=== PATIENT | female | born 1950 | race American Indian/Alaskan Native ===

== ENCOUNTER 2017-09-06 11:30 | Outpatient (CLI) | payer MEDICARE ==
--- NOTE | 2017-09-07 11:21 | Mammography Report ---
BONE DEXA:09/06/17 11:30:00 CLINICAL: Postmenopausal. COMPARISON: None. TECHNIQUE: Two site bone DEXA performed on an Hologic scanner. FINDINGS: The average BMD of the lumbar spine L1-L4 is 1.064g/cm squared with a T-score of +0.2 and a Z-score of +1.3. The average BMD of the left hip is 0.940g/cm squared with a T-score of 0 and a Z-score of +0.4. IMPRESSION: WHO classification: Normal with average fracture risk based on the spine and left hip measurements. RECOMMENDATION: Clinical correlation and routine screening. DEFINITIONS: BMD = Bone Mineral Density T-score = BMD related to mean peak bone mass of young adult (mean expressed in Standard Deviation) Z-score = Age matched BMD expressed in SD World Health Organization (WHO) Diagnostic Criteria Normal T-score > -1 SD Osteopenia T-score between -1 and -2.4 SD Osteoporosis T-score -2.5 SD or below NOTE: BMD is not the only risk factor for fracture; also consider factors such as the patient's age, risk of falling, previous osteoporotic fracture, family history of osteoporotic fractures, current smoker, and low body weight. Z-scores are not calculated if >80 years of age.
== END 2017-09-06 11:31 | disposition home or self-care (01) ==
LOC: MAMMO 11:30
PROVIDERS: ATTEND Internal Medicine
DX: M81.0 Age-related osteoporosis without current pathological fracture (principal); M19.90 Unspecified osteoarthritis, unspecified site; Z78.0 Asymptomatic menopausal state
CPT/HCPCS: 77080

== ENCOUNTER 2017-12-05 10:37 | Outpatient (CLI) | payer MEDICARE ==
--- NOTE | 2017-12-05 11:46 | XRay Report ---
RIGHT HIP, 2 views: History: Right hip pain. The bony architecture is intact without evidence of fracture or dislocation. No significant soft tissue abnormality is seen. IMPRESSION: Normal right hip.
--- NOTE | 2017-12-05 11:47 | XRay Report ---
BILATERAL KNEES STANDING, AP VIEW History: Pain in bilateral knees. Findings: Moderate to severe osteoarthritic joint space narrowing is identified in the medial compartment of the left knee. There is sparing of the lateral compartment. The right knee joint space is within normal limits. No evidence for fracture or bone lesion. The soft tissues are unremarkable. Impression: Advanced medial compartment osteoarthritis in the left knee.
--- NOTE | 2017-12-05 11:49 | XRay Report ---
LUMBOSACRAL SPINE, 3 VIEWS: History: Low back pain Findings: There is normal bone mineralization. There is suggestion of minimal dextrocurvature to the lumbar spine on the AP image estimated at less than 5 degrees. There is no evidence for compression deformity, subluxation or bone lesion. Mild degenerative disc disease and facet arthropathy are identified at all levels. The sacrum and SI joints are unremarkable. Impression: Minimal scoliosis. Mild multilevel lumbar spondylosis. No acute process.
== END 2017-12-05 10:38 | disposition home or self-care (01) ==
LOC: XRAY 10:37
PROVIDERS: ATTEND Orthopaedic Surgery
DX: M47.896 Other spondylosis, lumbar region (principal); M41.87 Other forms of scoliosis, lumbosacral region; M25.551 Pain in right hip; M25.561 Pain in right knee; M25.562 Pain in left knee; I10 Essential (primary) hypertension; G47.30 Sleep apnea, unspecified; M19.90 Unspecified osteoarthritis, unspecified site; Z90.710 Acquired absence of both cervix and uterus
CPT/HCPCS: 72100; 73565

== ENCOUNTER 2019-07-15 06:38 | Observation (INO) | payer MEDICARE ==
[2019-07-15] MEDS ORDERED: ASPIRIN EC 325 MG TAB PO ONE ×2 (06:55→07:10)
[2019-07-15] MEDS ORDERED: SODIUM CHLORIDE 0.9% 500 ML 500 ML IV SCH (07:00)
[2019-07-15] MEDS ORDERED: SODIUM CHLORIDE 0.9% 500 ML 500 ML ONE (07:10)
[2019-07-15 07:43] LABS: Basophils % (Auto) 0.5 % (0.0-1.8); Eosinophils # (Auto) 0.1 K/mm3 (0.0-0.4); Eosinophils % (Auto) 1.6 % (0.0-4.3); Hematocrit 30.4 % (30.3-42.9); Hemoglobin 9.4 gm/dl (10.1-14.3); Lymphocytes # (Auto) 1.7 K/mm3 (1.2-5.4); Lymphocytes % (Auto) 24.9 % (13.4-35.0); Mean Corpuscular HGB Conc 31 % (30-34); Mean Corpuscular Volume 80 fl (79-97); Monocytes # (Auto) 0.6 K/mm3 (0.0-0.8); Monocytes % (Auto) 8.6 % (0.0-7.3); Platelet Count 180 K/mm3 (140-440); Red Blood Count 3.81 M/mm3 (3.65-5.03); Red Cell Distribution Width 13.4 % (13.2-15.2)
[2019-07-15 07:46] LABS: Calcium 9.2 mg/dL (8.4-10.2); INR 0.97 (0.87-1.13)
--- NOTE | 2019-07-15 10:04 | Event Note ---
Date: 07/15/19 69-year-old woman with chronic kidney disease, referred for outpatient cardiac catheterization. Preprocedure testing shows a creatinine of 1.8. Due to concerns about contrast nephropathy, the procedure will be postponed until tomorrow morning, to allow for overnight intravenous hydration with normal saline at 75 mL/h. The patient will be admitted to the medical floor for overnight observation.
[2019-07-15] MEDS ORDERED: ACETAMINOPHEN 325 MG TAB PO PRN (10:06)
[2019-07-15] MEDS ORDERED: ONDANSETRON 4 MG/2 ML INJ IV PRN (10:06)
[2019-07-15] MEDS ORDERED: DEXTROSE 50% IN WATER (25GM) 50 ML SYRINGE IV PRN (10:10)
[2019-07-15] MEDS: SODIUM CHLORIDE 0.9% 1000 ML 1,000 ML IV SCH (10:36)
[2019-07-15] MEDS ORDERED: NON-FORMULARY EACH (Losartan [Cozaar] 100 MG) PO SCH (11:00)
[2019-07-15] MEDS ORDERED: carvediloL 25 MG TAB PO SCH (11:00)
[2019-07-15] MEDS: carvediloL 12.5 MG TAB PO SCH ×2 (16:44→21:04)
[2019-07-15] MEDS: INSULIN REGULAR, HUMAN 100 UNITS/1 ML SUB-Q SCH ×2 (16:44→22:43)
[2019-07-15] MEDS: LOSARTAN 50 MG TAB PO SCH (17:14)
[2019-07-15] MEDS: amLODIPine 10 MG TAB PO SCH (17:14)
[2019-07-15] MEDS: FERROUS SULFATE 325 MG TAB PO SCH (21:04)
[2019-07-15] MEDS: CHOLECALCIFEROL (VIT D3) 1000 UNIT TAB PO SCH (21:05)
[2019-07-15] MEDS ORDERED: SIMVASTATIN 80 MG PO SCH (22:00)
[2019-07-15] MEDS ORDERED: PRAVASTATIN 80 MG TAB PO SCH (22:00)
[2019-07-16] MEDS: INSULIN REGULAR, HUMAN 100 UNITS/1 ML SUB-Q SCH ×3 (06:40→12:41)
[2019-07-16 06:46] LABS: Calcium 8.8 mg/dL (8.4-10.2)
[2019-07-16] MEDS ORDERED: glipiZIDE 10 MG TAB PO SCH (08:00)
[2019-07-16] MEDS ORDERED: ASPIRIN 325 MG TAB ONE (09:14)
[2019-07-16] MEDS ORDERED: HEPARIN/NS 5000 UNIT/500ML 1,000 ML IR ONE (09:30)
[2019-07-16] MEDS ORDERED: ASPIRIN 325 MG TAB PO SCH (10:00)
[2019-07-16] MEDS ORDERED: ENOXAPARIN 40 MG/0.4 ML INJ SUB-Q SCH (10:00)
[2019-07-16] MEDS ORDERED: ENOXAPARIN 30 MG/0.3 ML INJ SUB-Q SCH (10:00)
[2019-07-16] MEDS: MIDAZOLAM 2 MG/2 ML INJ ONE ×2 (10:02→10:15)
[2019-07-16] MEDS: fentaNYL 100 MCG/2 ML INJ ONE ×2 (10:02→10:15)
[2019-07-16] MEDS: SODIUM CHLORIDE 0.9% 1000 ML 1,000 ML IV SCH (10:03)
[2019-07-16] MEDS: HEPARIN 10,000 UNITS/10 ML VIAL ONE ×2 (10:03→10:19)
[2019-07-16] MEDS: VERAPAMIL 5 MG/2 ML INJ ONE ×2 (10:03→10:19)
[2019-07-16] MEDS: LIDOCAINE (2%) 20 MG/1 ML VIAL 20 ML MDV INFILTRATI ONE ×2 (10:03→10:17)
[2019-07-16] MEDS: NITROGLYCERIN SYRINGE 3 ML ONE ×2 (10:04→10:19)
[2019-07-16] MEDS ORDERED: SODIUM CHLORIDE 0.9% 1000 ML 1,000 ML IV SCH (10:40)
[2019-07-16 10:47] VITALS: BP 162/64
--- NOTE | 2019-07-16 10:49 | Cardiac Catherization Report ---
CARDIAC CATHETERIZATION REPORT REASON FOR PROCEDURE: Chest pain. INDICATIONS: The patient is a 69-year-old woman who has chest pain and chronic kidney disease, presented for an outpatient cardiac catheterization. The creatinine on presentation was 1.8. Due to concerns about contrast nephropathy, the patient was admitted with a diagnosis of renal failure, and underwent intravenous hydration overnight. Today, the creatinine is low at 1.5. Risks and benefits of the procedure discussed with the patient and she consents to proceed. She understands the present risk of contrast nephropathy. PROCEDURES: 1. Left heart catheterization. 2. Selective left and right coronary angiography. 3. Left ventricular angiography. 4. Sedation time, start 10:14, end 10:26. The patient was prepped and draped in a sterile fashion after informed consent. Right radial cath site was prepped after a negative Tono's test. The right radial artery was entered using the Seldinger technique followed by placement of a 6-Persian hydrophilic sheath. Routine radial cocktail was administered via the sheath. Selective left and right coronary angiography was performed using #3.5 left Scottie and a #4 right Scottie. The right Scottie was used for left ventricular angiography. The catheters were removed, sheath removed, and hemostasis achieved using a TR band. The patient was returned to post-procedure unit in stable condition. There were no complications. FINDINGS: HEMODYNAMICS: Left ventricular end-diastolic pressure was 20, following coronary angiography. Ascending aortic pressure was 160/58. There was no significant pressure gradient on pullback across the aortic valve. CORONARY ANGIOGRAPHY: Left main coronary artery was free of significant disease. The left anterior descending artery contained mild luminal irregularities in its proximal and mid segments. A large ramus intermedius artery contained mild luminal irregularities in the distal segments. The circumflex artery was also a large system. We noted a 40-50% stenosis of the AV groove vessel and its mid segment, just before the origin of the mid obtuse marginal. The circumflex system otherwise contained mild luminal irregularities. The right coronary artery was a relatively small caliber, but dominant vessel that was also free of significant disease. There was overall mild left ventricular systolic dysfunction with estimated ejection fraction of 45-50%. There was poor opacification of the left ventricle. CONCLUSION: 1. Mild nonobstructive irregularities as above, mild nonobstructive disease of the mid circumflex. 2. Mild left ventricular systolic dysfunction, ejection fraction 45-50%. 3. Total contrast used for the procedure was 40 mL of Visipaque. RECOMMENDATIONS: Risk factor modification and medical therapy. Echocardiographic reassessment of left ventricular systolic function is recommended. JOB# [id number] CA/NTS
--- NOTE | 2019-07-16 10:52 | Short Stay Summary ---
Short Stay Documentation Date of service: 07/16/19 Narrative H&P: Admitted for overnight hydration for renal failure, in preparation for contrast angiography. - History Past Medical History: hypertension - Allergies and Medications Current Medications: Allergies No Known Allergies Allergy (Unverified 01/03/17 16:09) Home Medications Medication Instructions Recorded Confirmed Last Taken Type carvediloL [Coreg] 12.5 mg PO BID 01/04/17 07/15/19 07/14/19 History glipiZIDE [Glucotrol] 10 mg PO QDAY 01/04/17 07/15/19 07/14/19 History Aspirin 325 mg PO QDAY #30 tablet 01/05/17 07/15/19 Unknown Rx amLODIPine 10 mg PO DAILY #30 tablet 01/05/17 07/15/19 07/14/19 Rx Brimonidine Tartrate [Alphagan P 1 drop OU Q8HR 07/15/19 07/15/19 07/14/19 History 0.1%] Cholecalciferol Vit D3 [Vitamin D3 1,000 units PO BID 07/15/19 07/15/19 07/14/19 History 1,000 UNIT TAB] Ferrous Sulfate [Iron 325 MG] 325 mg PO BID 07/15/19 07/15/19 07/14/19 History Levobunolol 0.5%(Nf) [Betagan (Nf)] 1 drop OU BID 07/15/19 07/15/19 07/14/19 History Losartan [Cozaar] 100 mg PO QDAY 07/15/19 07/15/19 07/14/19 History Nitroglycerin [Nitrostat] 0.4 mg SL Q5M PRN 07/15/19 07/15/19 Unknown History Simvastatin (Nf) [Zocor TAB] 80 mg PO QHS 07/15/19 07/15/19 07/14/19 History metFORMIN [Glucophage] 500 mg PO QDAY 07/15/19 07/15/19 07/14/19 History Active Medications Acetaminophen (Tylenol) 650 mg PO Q4H PRN PRN Reason: Pain MILD(1-3)/Fever >100.5/CHICAS Amlodipine Besylate (Amlodipine) 10 mg PO DAILY [facility] Last Admin: 07/15/19 17:14 Dose: 10 mg Documented by: Aspirin (Aspirin) 325 mg PO QDAY [facility] Last Admin: 07/16/19 09:14 Dose: 325 mg Documented by: Carvedilol (Coreg) 12.5 mg PO BID [facility] Last Admin: 07/15/19 21:04 Dose: 12.5 mg Documented by: Cholecalciferol (Vitamin D3) 1,000 unit PO BID [facility] Last Admin: 07/15/19 21:05 Dose: 1,000 unit Documented by: Dextrose (D50w (25gm) Syringe) 50 ml IV Q30MIN PRN; Protocol PRN Reason: Hypoglycemia Enoxaparin Sodium (Enoxaparin) 40 mg SUB-Q QDAY@1000 [facility] Ferrous Sulfate (Feosol) 325 mg PO BID [facility] Last Admin: 07/15/19 21:04 Dose: 325 mg Documented by: Glipizide (Glucotrol) 10 mg PO QDDIAB [facility] Insulin Human Regular (Humulin R) 0 units SUB-Q ACHS [facility]; Protocol Last Admin: 07/16/19 06:40 Dose: Not Given Documented by: Losartan Potassium (Cozaar) 100 mg PO QDAY [facility] Last Admin: 07/15/19 17:14 Dose: 100 mg Documented by: Ondansetron HCl (Zofran) 4 mg IV Q8H PRN PRN Reason: Nausea And Vomiting Pravastatin Sodium (Pravachol) 160 mg PO QHS [facility] Last Admin: 07/15/19 21:05 Dose: 160 mg Documented by: Sodium Chloride (Sodium Chloride Flush Syringe 10 Ml) 10 ml IV PRN PRN PRN Reason: LINE FLUSH Stop: 07/25/19 10:05 - Physical exam General appearance: no acute distress Integumentary: no rash HEENT: Atraumatic Lungs: Clear to auscultation Breasts: deferred Heart: Regular rate Gastrointestinal: normoactive bowel sounds Female Genitourinary: deferred Rectal Exam: deferred Extremities: No edema Neurological: Normal gait - Brief post op/procedure progress note Date of procedure: 07/16/19 Pre-op diagnosis: Chest pain Post-op diagnosis: same Procedure: Cardiac catheterization Anesthesia: local Findings: Non-obstructive CAD, mild LV dysfunction. See dictated cath report for details. Surgeon: KYLE CASTILLO Estimated blood loss: none Pathology: none Condition: stable - Hospital course Hospital course: Stable, no immediate complications. - Disposition Condition at discharge: Stable Disposition: DC- TO HOME OR SELFCARE - Discharge Diagnoses (1) Chest pain Status: Acute (2) Renal failure Status: Acute Short Stay Discharge Plan Follow up with: SANTINO JACK MD [Primary Care Provider] - 7 Days
[2019-07-16] MEDS: LOSARTAN 50 MG TAB PO SCH (11:01)
[2019-07-16] MEDS: FERROUS SULFATE 325 MG TAB PO SCH (11:01)
[2019-07-16] MEDS: carvediloL 12.5 MG TAB PO SCH (11:01)
[2019-07-16] MEDS: amLODIPine 10 MG TAB PO SCH (11:02)
[2019-07-16] MEDS: CHOLECALCIFEROL (VIT D3) 1000 UNIT TAB PO SCH (11:02)
== END 2019-07-16 15:43 | disposition home or self-care (01) ==
LOC: CATH 06:38 → 4A 10:06
PROVIDERS: ADMIT Internal Medicine Cardiovascular Disease; ATTEND Internal Medicine Cardiovascular Disease
DX: R07.9 Chest pain, unspecified (principal); I12.9 Hypertensive chronic kidney disease with stage 1 through stage 4 chronic kidney disease, or unspecified chronic kidney disease; N18.9 Chronic kidney disease, unspecified; Z79.899 Other long term (current) drug therapy
CPT/HCPCS: 36415; 80048; 82962; 85025; 85610; 85730; 93005; 93010; 93458; 96372; A9270; C1894; G0378; J1644; J1650; J2250; J3010; J7030; J7040; J1815; Q9967

== ENCOUNTER 2020-10-10 13:16 | Inpatient (IN) | payer MEDICARE ==
[2020-10-10] MEDS ORDERED: ASPIRIN 325 MG TAB PO ONE (13:30)
--- NOTE | 2020-10-10 13:36 | Event Note ---
ED Screening Note Date of service: 10/10/20 Time: 13:36 ED Screening Note: Pt sent from urgent care for SOB and abnormal EKG This initial assessment/diagnostic orders/clinical plan/treatment(s) is/are subject to change based on patients health status, clinical progression and re- assessment by fellow clinical providers in the ED. Further treatment and workup at subsequent clinical providers discretion. Patient/guardian urged not to elope from the ED as their condition may be serious if not clinically assessed and managed. Initial orders include: labs CXR ekg
--- NOTE | 2020-10-10 13:53 | XRay Report ---
XR chest routine 2V INDICATION / CLINICAL INFORMATION: sob COMPARISON: 05/11/2020 FINDINGS: SUPPORT DEVICES: None. HEART / MEDIASTINUM: No significant abnormality. LUNGS / PLEURA: Lungs are clear. Costophrenic sulci are sharp. No pneumothorax. ADDITIONAL FINDINGS: No significant additional findings. IMPRESSION: 1. No acute findings. Signer Name: Som Bryant MD Signed: 10/10/2020 1:48 PM Workstation Name: [id number]
[2020-10-10 14:21] LABS: Basophils % (Auto) 0.3 % (0.0-1.8); Eosinophils # (Auto) 0.1 K/mm3 (0.0-0.4); Hematocrit 33.1 % (30.3-42.9); Hemoglobin 10.2 gm/dl (10.1-14.3); Lymphocytes # (Auto) 1.6 K/mm3 (1.2-5.4); Mean Corpuscular HGB Conc 31 % (30-34); Mean Corpuscular Volume 82 fl (79-97); Monocytes # (Auto) 0.5 K/mm3 (0.0-0.8); Monocytes % (Auto) 6.9 % (0.0-7.3); Platelet Count 162 K/mm3 (140-440); Red Blood Count 4.03 M/mm3 (3.65-5.03); Red Cell Distribution Width 14.1 % (13.2-15.2)
[2020-10-10 14:41] LABS: Alanine Aminotransferase 25 units/L (7-56); Albumin 4.1 g/dL (3.9-5); BUN/Creatinine Ratio 16; Blood Urea Nitrogen 28 mg/dL (7-17); Hemolysis Index 2
--- NOTE | 2020-10-10 22:48 | Emergency Department Report ---
HPI - General Chief Complaint: Dyspnea/Respdistress PUI?: Yes Time Seen by Provider: 10/10/20 13:34 - HPI HPI: Room 1 The patient is a 70-year-old female present with a chief complaint of shortness of breath. Patient states her symptoms began last night while at rest. She became short of breath. Patient also complaining of some substernal chest pressure that lasted several minutes before going to sleep. Patient states that shortness of breath continue today prompting her to go to an urgent care facility. Patient had EKG performed there was felt to be abnormal and the patient was sent to the ED for further evaluation. Patient admits to a cough has been productive of sputum since last night. Patient states she "heard a rattling" in her chest. Patient denies history of fever. Of note the patient states she received her second Covid vaccination approximately 1 month ago. The patient states chief nurse executive approached her about placing an AICD/pacemaker but she has so far refused. ED Past Medical Hx - Past Medical History Previous Medical History?: Yes Hx Hypertension: Yes Hx CVA: Yes Hx Diabetes: Yes Hx Renal Disease: Yes Hx Arthritis: Yes Additional medical history: bronchitis, pnemonia - Surgical History Past Surgical History?: Yes Hx Cholecystectomy: Yes Additional Surgical History: hysterectomy, Bowel resection, Fistula - Family History Family history: no significant - Social History Smoking Status: Never Smoker Substance Use Type: None (Denies illicit drug use), Alcohol (Occasional) - Medications Home Medications: Home Medications Medication Instructions Recorded Confirmed Last Taken Type glipiZIDE [Glucotrol] 10 mg PO QDAY 01/04/17 05/13/20 05/12/20 History Aspirin 325 mg PO QDAY #30 tablet 01/05/17 05/13/20 05/12/20 Rx amLODIPine 10 mg PO DAILY #30 tablet 01/05/17 05/13/20 05/12/20 Rx Brimonidine Tartrate [Alphagan P 1 drop OU BID 07/15/19 05/13/20 05/12/20 History 0.1%] Cholecalciferol Vit D3 [Vitamin D3 1,000 units PO DAILY 07/15/19 05/13/20 05/12/20 History 1,000 UNIT TAB] Ferrous Sulfate [Iron 325 MG] 325 mg PO DAILY 07/15/19 05/13/20 05/11/20 History Levobunolol 0.5%(Nf) [Betagan (Nf)] 1 drop OU BID 07/15/19 05/13/20 05/11/20 History Losartan [Cozaar] 100 mg PO QDAY 07/15/19 05/13/20 05/12/20 History Nitroglycerin [Nitrostat] 0.4 mg SL Q5M PRN 07/15/19 05/13/20 Unknown History Simvastatin (Nf) [Zocor TAB] 80 mg PO QHS 07/15/19 05/13/20 05/11/20 History Furosemide [Lasix] 20 mg PO QDAY #30 tablet 05/17/20 Unknown Rx Potassium Chloride [K-Dur] 10 meq PO QDAY #30 tablet 05/17/20 Unknown Rx carvediloL [Coreg] 12.5 mg PO BID #60 tablet 05/17/20 Unknown Rx ED Review of Systems ROS: Stated complaint: SOB Other details as noted in HPI Constitutional: denies: fever Eyes: denies: eye pain ENT: denies: throat pain Respiratory: cough, shortness of breath, SOB with exertion Cardiovascular: chest pain Endocrine: no symptoms reported Gastrointestinal: denies: abdominal pain Genitourinary: denies: dysuria Musculoskeletal: denies: back pain Neurological: denies: headache Physical Exam - Physical Exam Vital Signs: Vital Signs 10/10/20 13:27 Temperature 98.4 F Pulse Rate 82 Respiratory 20 Rate Blood Pressure 156/65 O2 Sat by Pulse 96 Oximetry Physical Exam: GENERAL: The patient is well-developed well-nourished female sitting in chair not appearing to be in acute distress. [] HEENT: Normocephalic. Atraumatic. Extraocular motions are intact. Patient has moist mucous membranes. NECK: Supple. Trachea midline CHEST/LUNGS: Clear to auscultation. There is no respiratory distress noted. HEART/CARDIOVASCULAR: Regular. There is no tachycardia. There is no gallop rub or murmur. ABDOMEN: Abdomen is soft, nontender. Patient has normal bowel sounds. There is no abdominal distention. SKIN: There is no rash. There is trace to 1+ bilateral lower extremity pitting edema. There is no diaphoresis. NEURO: The patient is awake, alert, and oriented. The patient is cooperative. The patient has no focal neurologic deficits. The patient has normal speech MUSCULOSKELETAL: There is no evidence of acute injury. ED Course Vital Signs 10/10/20 13:27 Temperature 98.4 F Pulse Rate 82 Respiratory 20 Rate Blood Pressure 156/65 O2 Sat by Pulse 96 Oximetry ED Medical Decision Making - Lab Data Result diagrams: 10/10/20 13:47 10/10/20 13:47 Laboratory Tests 10/10/20 10/10/20 10/10/20 13:47 13:47 13:47 WBC 7.0 RBC 4.03 Hgb 10.2 Hct 33.1 MCV 82 MCH 25 L MCHC 31 RDW 14.1 Plt Count 162 Lymph % (Auto) 23.0 [place] % (Auto) 6.9 Eos % (Auto) 2.0 Baso % (Auto) 0.3 Lymph # (Auto) 1.6 [place] # (Auto) 0.5 Eos # (Auto) 0.1 Baso # (Auto) 0.0 Seg Neutrophils % 67.8 Seg Neutrophils # 4.8 Sodium 141 Potassium 3.6 Chloride 107.1 H Carbon Dioxide 24 Anion Gap 14 BUN 28 H Creatinine 1.8 H Estimated GFR 34 BUN/Creatinine Ratio 16 Glucose 75 Calcium 9.0 Total Bilirubin 0.50 AST 18 ALT 25 Alkaline Phosphatase 64 Troponin T < 0.010 NT-Pro-B Natriuret Pep 8802 H Total Protein 7.2 Albumin 4.1 Albumin/Globulin Ratio 1.3 10/10/20 10/10/20 16:18 19:15 WBC RBC Hgb Hct MCV MCH MCHC RDW Plt Count Lymph % (Auto) [place] % (Auto) Eos % (Auto) Baso % (Auto) Lymph # (Auto) [place] # (Auto) Eos # (Auto) Baso # (Auto) Seg Neutrophils % Seg Neutrophils # Sodium Potassium Chloride Carbon Dioxide Anion Gap BUN Creatinine Estimated GFR BUN/Creatinine Ratio Glucose Calcium Total Bilirubin AST ALT Alkaline Phosphatase Troponin T < 0.010 < 0.010 NT-Pro-B Natriuret Pep Total Protein Albumin Albumin/Globulin Ratio - EKG Data -: EKG Interpreted by Me EKG shows normal: sinus rhythm Rate: normal - EKG Data When compared to previous EKG there are: previous EKG unavailable Interpretation: other (Left bundle branch block, frequent PVCs) - Radiology Data Radiology results: report reviewed (Chest x-ray), image reviewed (Chest x-ray) interpreted by me: Chest x-ray-no focal infiltrates, no pneumothorax. No foreign body seen [facility] [address] [place] [address] XRay Report Signed Patient: WON BAEZ MR#: [id number] : 1950 Acct:[id number] Age/Sex: 70 / F ADM Date: 10/10/20 Loc: ED Attending Dr: Ordering Physician: ED MD COLT Date of Service: 10/10/20 Procedure(s): XR chest routine 2V Accession Number(s): [id number] cc: ED DOCMD Fluoro Time In Minutes: XR chest routine 2V INDICATION / CLINICAL INFORMATION: sob COMPARISON: 05/11/2020 FINDINGS: SUPPORT DEVICES: None. HEART / MEDIASTINUM: No significant abnormality. LUNGS / PLEURA: Lungs are clear. Costophrenic sulci are sharp. No pneumothorax. ADDITIONAL FINDINGS: No significant additional findings. IMPRESSIO N: 1. No acute findings. Signer Name: Som Bryant MD Signed: 10/10/2020 1:48 PM Workstation Name: [id number] Transcribed By: CS Dictated By: Som Bryant MD Electronically Authenticated By: Som Bryant MD Signed Date/Time: 10/10/20 134 DD/ 47 TD/TT: Print Cancel - Differential Diagnosis ACS, CHF, pneumonia, bronchitis Critical care attestation.: If time is entered above; I have spent that time in minutes in the direct care of this critically ill patient, excluding procedure time. ED Disposition Clinical Impression: Shortness of breath, Frequent PVCs, CHF exacerbation Disposition: OP ADMIT IP TO THIS HOSP Is pt being admited?: Yes Does the pt Need Aspirin: No Condition: Fair Referrals: PRIMARY CARE, [Primary Care Provider] - 3-5 Days Time of Disposition: 22:52 (Hospitalist paged (Dr Ulrich)) Heart Score - HEART Score History: Moderately suspicious EKG: Non-specific Age: > 65 Risk factors: 1-2 risk factors Troponin: < normal limit HEART Score: 5 - EKG Read Time Time EKG Completed: 13:20 EKG Read Time: 13:24
[2020-10-10] MEDS ORDERED: FUROSEMIDE 40 MG/4 ML INJ IV ONE (22:50)
[2020-10-10] MEDS ORDERED: CLOPIDOGREL 300 MG TAB PO ONE (22:50)
[2020-10-11] MEDS ORDERED: NITROGLYCERIN 0.4 MG TAB SUBL SL PRN ×2 (00:56→00:58)
[2020-10-11] MEDS ORDERED: MORPHINE 2 MG/1 ML INJ IV PRN (00:58)
--- NOTE | 2020-10-11 01:05 | History and Physical Report ---
History of Present Illness Date of examination: 10/11/20 Date of admission: 10/10/20 23:59 Chief complaint: Dyspnea or shortness of breath History of present illness: 70-year-old female with past medical history of hypertension, CVA, diabetes, renal disease and arthritis was brought to the emergency room because of shortness of breath since last night while at rest. She became short of breath. Patient also complaining of some substernal chest pressure that lasted several minutes before going to sleep. Patient states that shortness of breath continue today prompting her to go to an urgent care facility. Patient had EKG performed there was felt to be abnormal and the patient was sent to the ED for further evaluation. Patient admits to a cough has been productive of sputum since last night. Patient states she "heard a rattling" in her chest. Patient denies history of fever. Of note the patient states she received her second Covid vaccination approximately 1 month ago. The patient states billiard table assembler approached her about placing an AICD/pacemaker but she has so far refused. In the emergency room initial cardiac enzyme is negative troponin is 0.010 and proBNP is 8802 Past History Past Medical History: arthritis, diabetes, hypertension, renal failure, stroke Medications and Allergies Allergies Allergy/AdvReac Type Severity Reaction Status Date / Time No Known Allergies Allergy Unverified 01/03/17 16:09 Home Medications Medication Instructions Recorded Confirmed Last Taken Type glipiZIDE [Glucotrol] 10 mg PO QDAY 01/04/17 05/13/20 05/12/20 History Aspirin 325 mg PO QDAY #30 tablet 01/05/17 05/13/20 05/12/20 Rx amLODIPine 10 mg PO DAILY #30 tablet 01/05/17 05/13/20 05/12/20 Rx Brimonidine Tartrate [Alphagan P 1 drop OU BID 07/15/19 05/13/20 05/12/20 History 0.1%] Cholecalciferol Vit D3 [Vitamin D3 1,000 units PO DAILY 07/15/19 05/13/20 05/12/20 History 1,000 UNIT TAB] Ferrous Sulfate [Iron 325 MG] 325 mg PO DAILY 07/15/19 05/13/20 05/11/20 History Levobunolol 0.5%(Nf) [Betagan (Nf)] 1 drop OU BID 07/15/19 05/13/20 05/11/20 History Losartan [Cozaar] 100 mg PO QDAY 07/15/19 05/13/20 05/12/20 History Nitroglycerin [Nitrostat] 0.4 mg SL Q5M PRN 07/15/19 05/13/20 Unknown History Simvastatin (Nf) [Zocor TAB] 80 mg PO QHS 07/15/19 05/13/20 05/11/20 History Furosemide [Lasix] 20 mg PO QDAY #30 tablet 05/17/20 Unknown Rx Potassium Chloride [K-Dur] 10 meq PO QDAY #30 tablet 05/17/20 Unknown Rx carvediloL [Coreg] 12.5 mg PO BID #60 tablet 05/17/20 Unknown Rx Review of Systems Cardiovascular: chest pain, edema, shortness of breath, dyspnea on exertion Respiratory: shortness of breath, dyspnea on exertion Exam - Constitutional Vitals: Temp Pulse Resp BP Pulse Ox 98.4 F 74 24 161/69 99 10/10/20 13:27 10/11/20 00:31 10/11/20 00:31 10/11/20 00:31 10/11/20 00:31 General appearance: Present: no acute distress, well-nourished - EENT Eyes: Present: PERRL ENT: hearing intact, clear oral mucosa - Neck Neck: Present: supple, normal ROM - Respiratory Respiratory effort: normal Respiratory: bilateral: diminished, rales - Cardiovascular Heart Sounds: Present: S1 & S2. Absent: rub, click - Extremities Extremities: pulses symmetrical, No edema Peripheral Pulses: within normal limits - Abdominal General gastrointestinal: Present: soft, non-tender, non-distended, normal bowel sounds Female genitourinary: Present: normal - Integumentary Integumentary: Present: clear, warm, dry - Musculoskeletal Musculoskeletal: gait normal, strength equal bilaterally - Psychiatric Psychiatric: appropriate mood/affect, intact judgment & insight - Neurologic Neurologic: CNII-XII intact, moves all extremities HEART Score - HEART Score EKG: Non-specific Age: > 65 Risk factors: 1-2 risk factors Troponin: Troponin T < 0.010 ng/mL (0.00-0.029) 10/10/20 19:15 Troponin: < normal limit Results - Labs CBC & Chem 7: 10/10/20 13:47 10/10/20 13:47 Labs: Laboratory Last Values WBC 7.0 K/mm3 (4.5-11.0) 10/10/20 13:47 RBC 4.03 M/mm3 (3.65-5.03) 10/10/20 13:47 Hgb 10.2 gm/dl (10.1-14.3) 10/10/20 13:47 Hct 33.1 % (30.3-42.9) 10/10/20 13:47 MCV 82 fl (79-97) 10/10/20 13:47 MCH 25 pg (28-32) L 10/10/20 13:47 MCHC 31 % (30-34) 10/10/20 13:47 RDW 14.1 % (13.2-15.2) 10/10/20 13:47 Plt Count 162 K/mm3 (140-440) 10/10/20 13:47 Lymph % (Auto) 23.0 % (13.4-35.0) 10/10/20 13:47 [place] % (Auto) 6.9 % (0.0-7.3) 10/10/20 13:47 Eos % (Auto) 2.0 % (0.0-4.3) 10/10/20 13:47 Baso % (Auto) 0.3 % (0.0-1.8) 10/10/20 13:47 Lymph # (Auto) 1.6 K/mm3 (1.2-5.4) 10/10/20 13:47 [place] # (Auto) 0.5 K/mm3 (0.0-0.8) 10/10/20 13:47 Eos # (Auto) 0.1 K/mm3 (0.0-0.4) 10/10/20 13:47 Baso # (Auto) 0.0 K/mm3 (0.0-0.1) 10/10/20 13:47 Seg Neutrophils % 67.8 % (40.0-70.0) 10/10/20 13:47 Seg Neutrophils # 4.8 K/mm3 (1.8-7.7) 10/10/20 13:47 Sodium 141 mmol/L (137-145) 10/10/20 13:47 Potassium 3.6 mmol/L (3.6-5.0) 10/10/20 13:47 Chloride 107.1 mmol/L (98-107) H 10/10/20 13:47 Carbon Dioxide 24 mmol/L (22-30) 10/10/20 13:47 Anion Gap 14 mmol/L 10/10/20 13:47 BUN 28 mg/dL (7-17) H 10/10/20 13:47 Creatinine 1.8 mg/dL (0.6-1.2) H 10/10/20 13:47 Estimated GFR 34 ml/min 10/10/20 13:47 BUN/Creatinine Ratio 16 % 10/10/20 13:47 Glucose 75 mg/dL (65-100) 10/10/20 13:47 Calcium 9.0 mg/dL (8.4-10.2) 10/10/20 13:47 Total Bilirubin 0.50 mg/dL (0.1-1.2) 10/10/20 13:47 AST 18 units/L (5-40) 10/10/20 13:47 ALT 25 units/L (7-56) 10/10/20 13:47 Alkaline Phosphatase 64 units/L (35-129) 10/10/20 13:47 Troponin T < 0.010 ng/mL (0.00-0.029) 10/10/20 19:15 NT-Pro-B Natriuret Pep 8802 pg/mL (0-900) H 10/10/20 13:47 Total Protein 7.2 g/dL (6.3-8.2) 10/10/20 13:47 Albumin 4.1 g/dL (3.9-5) 10/10/20 13:47 Albumin/Globulin Ratio 1.3 % 10/10/20 13:47 - Imaging and Cardiology Chest x-ray: image reviewed Assessment and Plan VTE prophylaxis?: Chemical Plan of care discussed with patient/family: Yes - Patient Problems (1) CHF exacerbation Current Visit: Yes Status: Acute Plan to address problem: Admit the patient to the medical telemetry. Put the patient on CHF pathway. Oxygen via nasal cannula 3 L/min. DuoNeb by nebulizer every 4 hours as needed. Lasix 40 mg IV every 12 hours. Fluid restriction 1500 cc/day. Will maintain intake and output. Consult cardiology if needed (2) Shortness of breath Current Visit: Yes Status: Acute Plan to address problem: Oxygen by nasal cannula 3 L/min. DuoNeb by nebulizer every 4 hours as needed. (3) Hypertension Current Visit: Yes Status: Acute Plan to address problem: Patient is on Coreg 12.5 mg p.o. twice daily losartan 100 mg p.o. daily and hydralazine 10 mg IV every 6 hours as needed. We monitor the blood pressure closely (4) CVA (cerebral vascular accident) Current Visit: No Status: Acute Plan to address problem: Stable. We will put the patient on aspirin 325 mg p.o. daily. Simvastatin 80 mg p.o. nightly. (5) Chest pain Current Visit: No Status: Acute Plan to address problem: Aspirin 325 mg p.o. daily. Simvastatin 80 mg p.o. nightly. Nitroglycerin as needed. Due to the serial cardiac enzyme. We also do echocardiogram. Consult cardiology if needed (6) Type 2 diabetes mellitus with diabetic chronic kidney disease Current Visit: No Status: Chronic Plan to address problem: Patient is on glipizide 10 mg p.o. daily we will monitor the blood glucose closely. Recheck BMP in the morning (7) DVT prophylaxis Current Visit: No Status: Acute Plan to address problem: Heparin 5000 units subcu every 8 hours for DVT prophylaxis and Protonix 40 mg p.o. daily for GI prophylaxis. Patient is a full code
[2020-10-11] MEDS ORDERED: hydrALAZINE 20 MG/1 ML INJ IV PRN (01:20)
[2020-10-11] MEDS: HEPARIN 5,000 UNIT/1 ML VIAL SUB-Q SCH ×3 (05:37→21:18)
[2020-10-11] MEDS: FUROSEMIDE 40 MG/4 ML INJ IV SCH ×2 (05:39→18:28)
[2020-10-11] MEDS ORDERED: glipiZIDE 10 MG TAB PO SCH (08:00)
--- NOTE | 2020-10-11 08:05 | Progress Note ---
Assessment and Plan Assessment and plan: (1) CHF exacerbation Current Visit: Yes Status: Acute Plan to address problem: Admit the patient to the medical telemetry. Put the patient on CHF pathway. Oxygen via nasal cannula 3 L/min. DuoNeb by nebulizer every 4 hours as needed. Lasix 40 mg IV every 12 hours. Fluid restriction 1500 cc/day. Will maintain intake and output. Consult cardiology if needed (2) Shortness of breath Current Visit: Yes Status: Acute Plan to address problem: Oxygen by nasal cannula 3 L/min. DuoNeb by nebulizer every 4 hours as needed. (3) Hypertension Current Visit: Yes Status: Acute Plan to address problem: Patient is on Coreg 12.5 mg p.o. twice daily losartan 100 mg p.o. daily and hydralazine 10 mg IV every 6 hours as needed. We monitor the blood pressure closely (4) CVA (cerebral vascular accident) Current Visit: No Status: Acute Plan to address problem: Stable. We will put the patient on aspirin 325 mg p.o. daily. Simvastatin 80 mg p.o. nightly. (5) Chest pain Current Visit: No Status: Acute Plan to address problem: Aspirin 325 mg p.o. daily. Simvastatin 80 mg p.o. nightly. Nitroglycerin as needed. Due to the serial cardiac enzyme. We also do echocardiogram. Consult cardiology if needed (6) Type 2 diabetes mellitus with diabetic chronic kidney disease Current Visit: No Status: Chronic Plan to address problem: Patient is on glipizide 10 mg p.o. daily we will monitor the blood glucose closely. Recheck BMP in the morning (7) DVT prophylaxis Current Visit: No Status: Acute Plan to address problem: Heparin 5000 units subcu every 8 hours for DVT prophylaxis and Protonix 40 mg p.o. daily for GI prophylaxis. Patient is a full code 10/11/2020 -Patient admitted for CHF exacerbation. Patient was seen by [facility] before and her ejection and had echo on 04/2020 and her EF was 20 to 25%. At that time patient was discharged with carvedilol advised to have follow-up with cardiology to have echo within 3 months. -Currently patient presented for CHF exacerbation, patient is manageable according to CHF exacerbation protocol -Patient has history of CKD and her creatinine is 1.8 this morning -Put a consult for [facility] evaluate her. History Interval history: Patient was seen and evaluated this morning Patient said she is breathing better today On 2 L of oxygen Hospitalist Physical - Physical exam Narrative exam: Not in cardiopulmonary distress. The patient is obese. Vital signs as documented. Head exam is unremarkable. No scleral icterus . Neck is without jugular venous distension, thyromegaly, or carotid bruits. Lungs are clear to auscultation. Cardiac exam reveals regular rate and Rhythm. Abdominal exam reveals normal bowel sounds, nontender, no organomegaly. Extremities are nonedematous and both femoral and pedal pulses are normal. APPLICATION PACKAGING SPECIALIST: Alert and oriented 3. No focal weakness. - Constitutional Vitals: Temp Pulse Resp BP Pulse Ox 98.7 F 60 20 157/67 100 10/11/20 05:28 10/11/20 05:28 10/11/20 05:28 10/11/20 05:28 10/11/20 05:28 General appearance: Present: no acute distress, well-nourished HEART Score - HEART Score EKG: Non-specific Age: > 65 Risk factors: 1-2 risk factors Troponin: Troponin T < 0.010 ng/mL (0.00-0.029) 10/10/20 19:15 Troponin: < normal limit Results - Labs CBC & Chem 7: 10/10/20 13:47 10/10/20 13:47 Labs: Laboratory Last Values WBC 7.0 K/mm3 (4.5-11.0) 10/10/20 13:47 RBC 4.03 M/mm3 (3.65-5.03) 10/10/20 13:47 Hgb 10.2 gm/dl (10.1-14.3) 10/10/20 13:47 Hct 33.1 % (30.3-42.9) 10/10/20 13:47 MCV 82 fl (79-97) 10/10/20 13:47 MCH 25 pg (28-32) L 10/10/20 13:47 MCHC 31 % (30-34) 10/10/20 13:47 RDW 14.1 % (13.2-15.2) 10/10/20 13:47 Plt Count 162 K/mm3 (140-440) 10/10/20 13:47 Lymph % (Auto) 23.0 % (13.4-35.0) 10/10/20 13:47 [place] % (Auto) 6.9 % (0.0-7.3) 10/10/20 13:47 Eos % (Auto) 2.0 % (0.0-4.3) 10/10/20 13:47 Baso % (Auto) 0.3 % (0.0-1.8) 10/10/20 13:47 Lymph # (Auto) 1.6 K/mm3 (1.2-5.4) 10/10/20 13:47 [place] # (Auto) 0.5 K/mm3 (0.0-0.8) 10/10/20 13:47 Eos # (Auto) 0.1 K/mm3 (0.0-0.4) 10/10/20 13:47 Baso # (Auto) 0.0 K/mm3 (0.0-0.1) 10/10/20 13:47 Seg Neutrophils % 67.8 % (40.0-70.0) 10/10/20 13:47 Seg Neutrophils # 4.8 K/mm3 (1.8-7.7) 10/10/20 13:47 Sodium 141 mmol/L (137-145) 10/10/20 13:47 Potassium 3.6 mmol/L (3.6-5.0) 10/10/20 13:47 Chloride 107.1 mmol/L (98-107) H 10/10/20 13:47 Carbon Dioxide 24 mmol/L (22-30) 10/10/20 13:47 Anion Gap 14 mmol/L 10/10/20 13:47 BUN 28 mg/dL (7-17) H 10/10/20 13:47 Creatinine 1.8 mg/dL (0.6-1.2) H 10/10/20 13:47 Estimated GFR 34 ml/min 10/10/20 13:47 BUN/Creatinine Ratio 16 % 10/10/20 13:47 Glucose 75 mg/dL (65-100) 10/10/20 13:47 Calcium 9.0 mg/dL (8.4-10.2) 10/10/20 13:47 Total Bilirubin 0.50 mg/dL (0.1-1.2) 10/10/20 13:47 AST 18 units/L (5-40) 10/10/20 13:47 ALT 25 units/L (7-56) 10/10/20 13:47 Alkaline Phosphatase 64 units/L (35-129) 10/10/20 13:47 Troponin T < 0.010 ng/mL (0.00-0.029) 10/10/20 19:15 NT-Pro-B Natriuret Pep 8802 pg/mL (0-900) H 10/10/20 13:47 Total Protein 7.2 g/dL (6.3-8.2) 10/10/20 13:47 Albumin 4.1 g/dL (3.9-5) 10/10/20 13:47 Albumin/Globulin Ratio 1.3 % 10/10/20 13:47 Microbiology: Microbiology 10/10/20 23:01 Peripheral/Venous Blood Culture - Preliminary Culture in Progress 10/10/20 22:54 Peripheral/Venous Blood Culture - Preliminary Culture in Progress Rivera/IV: Voiding Method Toilet Active Medications - Current Medications Current Medications: Generic Name Dose Route Start Last Admin Trade Name Freq PRN Reason Stop Dose Admin Amlodipine Besylate 10 mg 10/11/20 10:00 Amlodipine 10 Mg Tab PO DAILY [facility] Aspirin 325 mg 10/11/20 10:00 Aspirin 325 Mg Tab PO QDAY [facility] Carvedilol 12.5 mg 10/11/20 10:00 Carvedilol 12.5 Mg Tab PO BID [facility] Ferrous Sulfate 325 mg 10/11/20 10:00 Ferrous Sulfate 325 Mg Tab PO DAILY [facility] Furosemide 40 mg 10/11/20 06:00 10/11/20 05:39 Furosemide 40 Mg/4 Ml Inj IV 40 mg BID@0600,1800 [facility] Administration Glipizide 10 mg 10/11/20 08:00 Glipizide 10 Mg Tab PO QDDIAB [facility] Heparin Sodium (Porcine) 5,000 unit 10/11/20 06:00 10/11/20 05:37 Heparin 5,000 Unit/1 Ml Vial SUB-Q 5,000 unit Q8HR [facility] Administration Hydralazine HCl 10 mg 10/11/20 01:20 Hydralazine 20 Mg/1 Ml Inj IV Q6H PRN htn Losartan Potassium 100 mg 10/11/20 10:00 Losartan 50 Mg Tab PO QDAY [facility] Miscellaneous Medication 1 drop 10/11/20 10:00 Brimonidine Tartrate [Alphagan P 0.1%] OU BID [facility] Miscellaneous Medication 1 drop 10/11/20 10:00 Levobunolol 0.5%(Nf) OU BID [facility] Morphine Sulfate 2 mg 10/11/20 00:58 Morphine 2 Mg/1 Ml Inj IV Q5MIN PRN Chest Pain unrelieved by NTG Nitroglycerin 0.4 mg 10/11/20 00:58 Nitroglycerin 0.4 Mg Tab Subl SL .Q5MIN PRN Chest Pain Pantoprazole Sodium 40 mg 10/11/20 07:30 Pantoprazole 40 Mg Tab PO QDAC [facility] Potassium Chloride 10 meq 10/11/20 10:00 Potassium Chloride Er 10 Meq Tab PO QDAY [facility] Pravastatin Sodium 80 mg 10/11/20 22:00 Pravastatin 80 Mg Tab PO QHS [facility]
[2020-10-11] MEDS: POTASSIUM CHLORIDE ER 10 MEQ TAB PO SCH (09:50)
[2020-10-11] MEDS: amLODIPine 10 MG TAB PO SCH (09:50)
[2020-10-11] MEDS: LOSARTAN 50 MG TAB PO SCH (09:51)
[2020-10-11] MEDS: ASPIRIN 325 MG TAB PO SCH (09:52)
[2020-10-11] MEDS: FERROUS SULFATE 325 MG TAB PO SCH (09:52)
[2020-10-11] MEDS: carvediloL 12.5 MG TAB PO SCH ×2 (09:52→21:17)
[2020-10-11] MEDS: PANTOPRAZOLE 40 MG TAB PO SCH (09:52)
[2020-10-11] MEDS ORDERED: BRIMONIDINE 0.15% OPHTH SOLN OU SCH (10:00)
[2020-10-11] MEDS ORDERED: LEVOBUNOLOL 0.5% OU SCH (10:00)
[2020-10-11] MEDS ORDERED: NON-FORMULARY EACH (Brimonidine Tartrate [Alphagan P 0.1%] 10 ML Drops) OU SCH (10:00)
[2020-10-11] MEDS ORDERED: NON-FORMULARY EACH (Losartan [Cozaar] 100 MG Tablet) PO SCH (10:00)
--- NOTE | 2020-10-11 11:09 | Consultation ---
History of Present Illness Consult date: 10/11/20 Consult reason: congestive heart failure History of present illness: 70 YO woman with h/o non ischemic cardiomyopathy, LBBB, intermittent bradycardia due to second degree type 1 AVB, CKD, Htn and DM presented to ED due to increasing exertional dyspnea and orthopnea. She also reports she has associated chest pressure. She was recently evaluated in office regarding HANDLE MACHINE OPERATOR-D implant but had declined for now. On admission her BNP level was noted to be signfiicantly elevated but chest Xray does not reveal any significant pulmonary edema. She has been diuresed since admission and reports her symptoms are now markedly improved. ECG on admission revealed SR with LBBB. Telemetry reveals SR with intermittent second degree type 1 AVB. Last echo in office on 08/11/20 revealed dilated RA, LA, RV and LV with LVEF 20% and moderate MR. Coronary angiogram 07/16/19 had revealed mild nonobstructive CAD. Past History Past Medical History: arthritis, diabetes, hypertension, renal failure, stroke Medications and Allergies Allergies Allergy/AdvReac Type Severity Reaction Status Date / Time No Known Allergies Allergy Unverified 01/03/17 16:09 Home Medications Medication Instructions Recorded Confirmed Last Taken Type glipiZIDE [Glucotrol] 10 mg PO QDAY 01/04/17 05/13/20 05/12/20 History Aspirin 325 mg PO QDAY #30 tablet 01/05/17 05/13/20 05/12/20 Rx amLODIPine 10 mg PO DAILY #30 tablet 01/05/17 05/13/20 05/12/20 Rx Brimonidine Tartrate [Alphagan P 1 drop OU BID 07/15/19 05/13/20 05/12/20 History 0.1%] Cholecalciferol Vit D3 [Vitamin D3 1,000 units PO DAILY 07/15/19 05/13/20 05/12/20 History 1,000 UNIT TAB] Ferrous Sulfate [Iron 325 MG] 325 mg PO DAILY 07/15/19 05/13/20 05/11/20 History Levobunolol 0.5%(Nf) [Betagan (Nf)] 1 drop OU BID 07/15/19 05/13/20 05/11/20 History Losartan [Cozaar] 100 mg PO QDAY 07/15/19 05/13/20 05/12/20 History Nitroglycerin [Nitrostat] 0.4 mg SL Q5M PRN 07/15/19 05/13/20 Unknown History Simvastatin (Nf) [Zocor TAB] 80 mg PO QHS 07/15/19 05/13/20 05/11/20 History Furosemide [Lasix] 20 mg PO QDAY #30 tablet 05/17/20 Unknown Rx Potassium Chloride [K-Dur] 10 meq PO QDAY #30 tablet 05/17/20 Unknown Rx carvediloL [Coreg] 12.5 mg PO BID #60 tablet 05/17/20 Unknown Rx Active Meds: Active Medications Amlodipine Besylate (Amlodipine 10 Mg Tab) 10 mg PO DAILY [facility] Last Admin: 10/11/20 09:50 Dose: 10 mg Documented by: Aspirin (Aspirin 325 Mg Tab) 325 mg PO QDAY [facility] Last Admin: 10/11/20 09:52 Dose: 325 mg Documented by: Carvedilol (Carvedilol 12.5 Mg Tab) 12.5 mg PO BID [facility] Last Admin: 10/11/20 09:52 Dose: 12.5 mg Documented by: Ferrous Sulfate (Ferrous Sulfate 325 Mg Tab) 325 mg PO DAILY [facility] Last Admin: 10/11/20 09:52 Dose: 325 mg Documented by: Furosemide (Furosemide 40 Mg/4 Ml Inj) 40 mg IV BID@0600,1800 [facility] Last Admin: 10/11/20 05:39 Dose: 40 mg Documented by: Glipizide (Glipizide 10 Mg Tab) 10 mg PO QDDIAB [facility] Last Admin: 10/11/20 09:51 Dose: 10 mg Documented by: Heparin Sodium (Porcine) (Heparin 5,000 Unit/1 Ml Vial) 5,000 unit SUB-Q Q8HR [facility] Last Admin: 10/11/20 05:37 Dose: 5,000 unit Documented by: Hydralazine HCl (Hydralazine 20 Mg/1 Ml Inj) 10 mg IV Q6H PRN PRN Reason: htn Losartan Potassium (Losartan 50 Mg Tab) 100 mg PO QDAY [facility] Last Admin: 10/11/20 09:51 Dose: 100 mg Documented by: Miscellaneous Medication (Brimonidine Tartrate [Alphagan P 0.1%]) 1 drop OU BID [facility] Miscellaneous Medication (Levobunolol 0.5%(Nf)) 1 drop OU BID [facility] Morphine Sulfate (Morphine 2 Mg/1 Ml Inj) 2 mg IV Q5MIN PRN PRN Reason: Chest Pain unrelieved by NTG Nitroglycerin (Nitroglycerin 0.4 Mg Tab Subl) 0.4 mg SL .Q5MIN PRN PRN Reason: Chest Pain Pantoprazole Sodium (Pantoprazole 40 Mg Tab) 40 mg PO QDAC [facility] Last Admin: 10/11/20 09:52 Dose: 40 mg Documented by: Potassium Chloride (Potassium Chloride Er 10 Meq Tab) 10 meq PO QDAY [facility] Last Admin: 10/11/20 09:50 Dose: 10 meq Documented by: Pravastatin Sodium (Pravastatin 80 Mg Tab) 80 mg PO QHS [facility] Review of Systems All systems: negative (per hpi) Physical Examination Vital Signs Temp Pulse Resp BP Pulse Ox 98.4 F 82 20 156/65 96 10/10/20 13:27 10/10/20 13:27 10/10/20 13:27 10/10/20 13:27 10/10/20 13:27 General appearance: no acute distress Cardiac: Positive: Reg Rate and Rhythm, Systolic Murmur Lungs: Positive: Decreased Breath Sounds Abdomen: Positive: Soft Extremities: Present: edema Results 10/10/20 13:47 10/10/20 13:47 Cardiac Enzymes 10/10/20 Range/Units 13:47 AST 18 (5-40) units/L CBC 10/10/20 Range/Units 13:47 WBC 7.0 (4.5-11.0) K/mm3 RBC 4.03 (3.65-5.03) M/mm3 Hgb 10.2 (10.1-14.3) gm/dl Hct 33.1 (30.3-42.9) % Plt Count 162 (140-440) K/mm3 Lymph # (Auto) 1.6 (1.2-5.4) K/mm3 [place] # (Auto) 0.5 (0.0-0.8) K/mm3 Eos # (Auto) 0.1 (0.0-0.4) K/mm3 Baso # (Auto) 0.0 (0.0-0.1) K/mm3 Comprehensive Metabolic Panel 10/10/20 Range/Units 13:47 Sodium 141 (137-145) mmol/L Potassium 3.6 (3.6-5.0) mmol/L Chloride 107.1 H (98-107) mmol/L Carbon Dioxide 24 (22-30) mmol/L BUN 28 H (7-17) mg/dL Creatinine 1.8 H (0.6-1.2) mg/dL Glucose 75 (65-100) mg/dL Calcium 9.0 (8.4-10.2) mg/dL AST 18 (5-40) units/L ALT 25 (7-56) units/L Alkaline Phosphatase 64 (35-129) units/L Total Protein 7.2 (6.3-8.2) g/dL Albumin 4.1 (3.9-5) g/dL Assessment and Plan Acute on chronic systolic heart failure Non ischemic dilated cardiomyopathy with EF 20% LBBB Intermittent second degree type 1 AV block CKD: Cr appears to be at baseline Htn DM Recommend: IV diuresis while closely monitoring renal function Continue GDMT for NICMP. Do not stop beta feliz unless pt has high grade AV block or symptomatic bradycardia She can likely be discharged tomorrow. Outpatient f/u - pt reports she is switching to hematology specialist at [facility] in [place] as she will be moving and already has appt for next week.
[2020-10-11] MEDS ORDERED: DEXTROSE 50% IN WATER (25GM) 50 ML SYRINGE IV PRN (17:32)
[2020-10-11] MEDS ORDERED: PRAVASTATIN 80 MG TAB PO SCH (22:00)
[2020-10-11] MEDS ORDERED: NON-FORMULARY EACH (Simvastatin 20 MG Tablet) PO SCH (22:00)
[2020-10-11] MEDS: INSULIN LISPRO 100 UNIT/ML SUB-Q SCH (22:07)
[2020-10-12] MEDS: HEPARIN 5,000 UNIT/1 ML VIAL SUB-Q SCH (06:46)
[2020-10-12] MEDS: FUROSEMIDE 40 MG/4 ML INJ IV SCH (06:46)
[2020-10-12 06:47] LABS: Calcium 8.6 mg/dL (8.4-10.2)
[2020-10-12] MEDS: carvediloL 12.5 MG TAB PO SCH (10:02)
[2020-10-12] MEDS: ASPIRIN 325 MG TAB PO SCH (10:02)
[2020-10-12] MEDS: LOSARTAN 50 MG TAB PO SCH (10:02)
[2020-10-12] MEDS: amLODIPine 10 MG TAB PO SCH (10:02)
[2020-10-12] MEDS: FERROUS SULFATE 325 MG TAB PO SCH (10:02)
[2020-10-12] MEDS: POTASSIUM CHLORIDE ER 10 MEQ TAB PO SCH (10:02)
[2020-10-12] MEDS: PANTOPRAZOLE 40 MG TAB PO SCH (10:03)
[2020-10-12] MEDS: INSULIN LISPRO 100 UNIT/ML SUB-Q SCH (10:03)
--- NOTE | 2020-10-12 10:37 | Electrocardiograph Report ---
[facility] [place] Test Date: 2020-10-10 Test Time: 13:20:53 Pat Name: WON BAEZ Department: Room: A384 1 Gender: F Certified Medical Coding Specialist: JEANNE : 1950 Requested By: YUSRA IRVING Order Number: [id number] Reading MD: Art Toussaint Measurements Intervals [place] Rate: 82 P: 95 [place]: 232 QRS: -24 QRSD: 168 T: 109 QT: 464 QTc: 544 Interpretive Statements Sinus rhythm Multiple ventricular premature complexes Prolonged [place] interval Probable left atrial enlargement Left bundle branch block No previous ECG available for comparison Electronically Signed On 10-12-2020 10:36:42 EDT by Art Toussaint
--- NOTE | 2020-10-12 10:40 | Electrocardiograph Report ---
[facility] Test Date: 2020-10-11 Test Time: 03:58:35 Pat Name: WON BAEZ Department: Room: A384 1 Gender: F Fabric Machine Operator: EVANS : 1950 Requested By: LUCILLE FLEMING Order Number: [id number] Reading MD: Art Toussaint Measurements Intervals [place] Rate: 61 P: 45 TN: 205 QRS: -32 QRSD: 174 T: 108 QT: 499 QTc: 501 Interpretive Statements Sinus rhythm Left bundle branch block No previous ECG available for comparison Electronically Signed On 10-12-2020 10:39:31 EDT by Art Toussaint
[2020-10-12 11:35] VITALS: BP 126/65
--- NOTE | 2020-10-12 12:46 | Progress Note ---
Assessment and Plan - Patient Problems (1) Nonischemic cardiomyopathy Current Visit: Yes Status: Acute Plan to address problem: Continue guideline directed medical therapy for asymptomatic, nonischemic cardiomyopathy. Patient has outpatient follow-up visit with new [facility] major account representative in about a week. Stable for cardiac discharge on medications. Subjective Date of service: 10/12/20 Interval history: Patient looks and feels better, wants to go home. As reported, she had a cardiac catheterization a year ago, that demonstrated mild luminal irregularities, no significant coronary disease. At the time of the cardiac catheterization her left ventricular ejection fraction was only mildly impaired at 40 to 45%. Nine months after the catheterization, and outpatient echocardiogram reported a deterioration of LV systolic dysfunction to 20 to 25%. She has followed up regularly with her major account representative in the outpatient, but plans to switch to a new major account representative at [facility]. Her comorbidities include chronic kidney disease with creatinine range of 2.0- 2.5 at baseline. Objective Vital Signs Temp Pulse Resp BP BP Pulse Ox 10/12/20 10:00 99 10/12/20 09:59 98.0 F 83 19 126/65 100 10/12/20 05:32 97.6 F 74 18 112/65 97 10/12/20 05:29 74 112/65 97 10/11/20 22:15 99 10/11/20 21:17 65 124/56 10/11/20 21:15 98 F 65 17 127/56 100 - Physical Examination General: Appears Well, No Apparent Distress HEENT: Positive: PERRL Neck: Positive: neck supple Cardiac: Positive: Reg Rate and Rhythm Lungs: Positive: clear to auscultation Neuro: Positive: Grossly Intact Abdomen: Positive: Soft Skin: Positive: Clear Extremities: Absent: edema - Labs and Meds Comprehensive Metabolic Panel 10/12/20 Range/Units 05:11 Sodium 141 (137-145) mmol/L Potassium 4.0 (3.6-5.0) mmol/L Chloride 102.7 (98-107) mmol/L Carbon Dioxide 26 (22-30) mmol/L BUN 39 H (7-17) mg/dL Creatinine 2.5 H (0.6-1.2) mg/dL Glucose 163 H (65-100) mg/dL Calcium 8.6 (8.4-10.2) mg/dL
--- NOTE | 2020-10-12 13:18 | Discharge Summary ---
Providers - Providers Date of Admission: 10/10/20 23:59 Attending physician: NINO KENNEDY MD 10/11/20 03:37 Consult to Cardiology [CONS] Urgent Consulting Provider: LUCILLE FLEMING Reason For Exam: Pvcs with first to second degree Block 10/11/20 07:58 Consult to Physician [CONS] Routine Comment: Consulting Provider: JANINA BENNETT Physician Instructions: Reason For Exam: CHF exacerbation 10/12/20 11:03 Consult to Physician [CONS] Routine Comment: Consulting Provider: JAMES MARIN Physician Instructions: Reason For Exam: LUCA Primary care physician: CONTRACT ASSOCIATE MANAGER Hospitalization Reason for admission: Shortness of breath Condition: Fair Hospital course: 70-year-old female with past medical history of hypertension, CVA, diabetes, renal disease and arthritis was brought to the emergency room because of shortness of breath since last night while at rest. She became short of breath. Patient also complaining of some substernal chest pressure that lasted several minutes before going to sleep. Patient states that shortness of breath continue today prompting her to go to an urgent care facility. Patient had EKG performed there was felt to be abnormal and the patient was sent to the ED for further evaluation. Patient admits to a cough has been productive of sputum since last night. Patient states she "heard a rattling" in her chest. Patient denies history of fever. Of note the patient states she received her second Covid vaccination approximately 1 month ago. The patient states piston maker approached her about placing an AICD/pacemaker but she has so far refused. In the emergency room initial cardiac enzyme is negative troponin is 0.010 and proBNP is 8802 10/11/2020 -Patient admitted for CHF exacerbation. Patient was seen by [facility] before and her ejection and had echo on 04/2020 and her EF was 20 to 25%. At that time patient was discharged with carvedilol advised to have follow-up with cardiology to have echo within 3 months. -Currently patient presented for CHF exacerbation, patient is manageable according to CHF exacerbation protocol -Patient has history of CKD and her creatinine is 1.8 this morning -Put a consult for [facility] evaluate her. 10/12: Patient this morning was noted to have a creatinine of 2.5 which is above her baseline. She states that she would rather follow-up with her kidney doctor outpatient in 2 to 3 days for further evaluation and she will hold her Lasix. She states that the kidney doctor had told her to hold her Lasix unfortunately this was not communicated again in the hospital and nephrology was not consulted. She reports that clinically she has improved. I did discuss with her extensively the importance of rechecking her kidney numbers in 2 to 3 days as she could progress to end-stage renal disease on require dialysis rather rapidly and also electrolytes associated with this including potassium good rise if poor clearance by the kidneys she verbalized understanding. Still has states that she wants to be discharged. I showed the communication with the trading analyst who is in agreement with the plan to follow-up outpatient CARDIOLOGY RECOMMENDATION AND ASSESSMENT 1) Nonischemic cardiomyopathy Current Visit: Yes Status: Acute Plan to address problem: Continue guideline directed medical therapy for asymptomatic, nonischemic cardiomyopathy. Patient has outpatient follow-up visit with new [facility] piston maker in about a week. Stable for cardiac discharge on medications. Patient looks and feels better, wants to go home. As reported, she had a cardiac catheterization a year ago, that demonstrated mild luminal irregularities, no significant coronary disease. At the time of the cardiac catheterization her left ventricular ejection fraction was only mildly impaired at 40 to 45%. Nine months after the catheterization, and outpatient echocardiogram reported a deterioration of LV systolic dysfunction to 20 to 25%. She has followed up regularly with her piston maker in the outpatient, but plans to switch to a new piston maker at [facility]. Her comorbidities include chronic kidney disease with creatinine range of 2.0- 2.5 at baseline. 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 Chronic hypoxic respiratory failure Hypertension History of CVA Atypical chest pain secondary to not ischemic cardiomyopathy Nonischemic cardiomyopathy Type 2 diabetes mellitus Acute kidney injury secondary to vasomotor on chronic kidney disease with underlying diabetic chronic kidney disease Disposition: - TO HOME OR SELFCARE Final Discharge Diagnosis (Prints w/discharge instructions): Nonischemic cardiomyopathy Time spent for discharge: 35-minute Core Measure Documentation - Palliative Care Palliative Care/ Comfort Measures: Not Applicable - Core Measures Any of the following diagnoses?: none Exam - Physical Exam Narrative exam: Not in cardiopulmonary distress. Sitting up at the bedside The patient is obese. Vital signs as documented. Head exam is unremarkable. No scleral icterus . Neck is without jugular venous distension, thyromegaly, or carotid bruits. Lungs are clear to auscultation. Cardiac exam reveals regular rate and Rhythm. Abdominal exam reveals normal bowel sounds, nontender, no organomegaly. Extremities are nonedematous and both femoral and pedal pulses are normal. AML ANALYST: Alert and oriented 3. No focal weakness. - Constitutional Vitals: Temp Pulse Resp BP Pulse Ox 98.0 F 83 19 126/65 99 10/12/20 09:59 10/12/20 09:59 10/12/20 09:59 10/12/20 09:59 10/12/20 10:00 Plan Activity: advance as tolerated, fall precautions Diet: low salt Special Instructions: restrict fluid intake to (1200cc/day), record daily weights, record daily BP diary Plan of Treatment: must check Renal function in 2-3 days Follow up with: DINORAH MCKEON MD [Primary Care Provider] - 3-5 Days ANI ERNST MD [Staff Physician] - 7 Days KYLE CASTILLO MD [Staff Physician] - 7 Days
[2020-10-13] MEDS ORDERED: FUROSEMIDE 20 MG TAB PO SCH (10:00)
== END 2020-10-12 16:10 | disposition home or self-care (01) | DRG 291 ==
LOC: ED 13:16 → 3A 23:59
PROVIDERS: ADMIT Hospitalist; ATTEND Internal Medicine
DX: I13.0 Hypertensive heart and chronic kidney disease with heart failure and stage 1 through stage 4 chronic kidney disease, or unspecified chronic kidney disease (principal); I50.23 Acute on chronic systolic (congestive) heart failure; N17.0 Acute kidney failure with tubular necrosis; J96.11 Chronic respiratory failure with hypoxia; Z20.822 Contact with and (suspected) exposure to COVID-19; I49.3 Ventricular premature depolarization; E11.22 Type 2 diabetes mellitus with diabetic chronic kidney disease; N18.9 Chronic kidney disease, unspecified; I42.8 Other cardiomyopathies; I44.7 Left bundle-branch block, unspecified; I44.1 Atrioventricular block, second degree; M19.90 Unspecified osteoarthritis, unspecified site; Z90.49 Acquired absence of other specified parts of digestive tract; Z87.01 Personal history of pneumonia (recurrent); Z90.710 Acquired absence of both cervix and uterus; Z79.899 Other long term (current) drug therapy; Z79.82 Long term (current) use of aspirin; Z79.01 Long term (current) use of anticoagulants; Z79.891 Long term (current) use of opiate analgesic; Z86.73 Personal history of transient ischemic attack (TIA), and cerebral infarction without residual deficits
CPT/HCPCS: 36415; 71046; 80048; 80053; 82962; 83880; 84484; 85025; 87040; 93005; 96365; 96375; G0378; A9270-GY; J1644; J1815; J1940; U0003